=== PATIENT | male | born 1975 | race Two or more races ===

== ENCOUNTER 2022-07-30 15:26 | Emergency (ER) | payer OTHER ==
[~2022-07-30] VITALS: Ht 177.8 cm; Wt 99.8 kg
[~2022-07-30 15:26] MED LIST: MUPI1OIN NS; RIFA600V4 PO; SULF1TAB48 PO
--- NOTE | 2022-07-30 15:30 | NUR ---
RECEIVED PT 47 YRS MALE CAME BY [facility] FOR CHEST PAIN CAME BY COUSTED RESPIRATION
--- NOTE | 2022-07-30 15:35 | NUR ---
2 OFFICER 1AT BED SIDE SONU SOTO #[phone] FROM [facility]
--- NOTE | 2022-07-30 15:45 | NUR ---
BLOOD DROW BY LAB TACH
[2022-07-30] MEDS ORDERED: ASPIRIN 325 MG TABLET ONE (16:23)
[2022-07-30] MEDS ORDERED: ASPIRIN 325 MG TABLET PO ONE (16:30)
[2022-07-30 16:39] LABS: BASOPHILS % (AUTO) 0.3 % (0.0-2.0); EOSINOPHILS % (AUTO) 1.3 % (0.0-6.0); HEMATOCRIT 46 % (39-51); HEMOGLOBIN 14.9 g/dL (13.5-17.5); LYMPHOCYTES # (AUTO) 2.2 K/uL (0.8-4.8); LYMPHOCYTES % (AUTO) 19.4 % (20.0-44.0); MEAN CORPUSCULAR HGB CONC 32 g/dl (31.0-36.0); MEAN CORPUSCULAR VOLUME 83 fL (80-96); MONOCYTES # (AUTO) 0.6 K/uL (0.1-1.30); MONOCYTES % (AUTO) 5.2 % (2.0-12.0); NEUTROPHILS # (AUTO) 8.3 K/uL (1.8-8.9); NEUTROPHILS % (AUTO) 73.8 % (43.0-81.0); PLATELET COUNT (AUTO) 303 K/uL (150-450); RED BLOOD CELL COUNT(AUTO) 5.52 MIL/uL (4.5-6.0); WHITE BLOOD COUNT (AUTO) 11.3 K/uL (4.3-11.0)
[2022-07-30 17:22] LABS: CALCIUM, SERUM 9.2 mg/dL (8.5-10.1); CARBON DIOXIDE 28 mmol/L (21-32); CHLORIDE 105 mmol/L (98-107); GLUCOSE 103 mg/dL (74-106); POTASSIUM 4.2 mmol/L (3.5-5.1); SODIUM SERUM 141 mmol/L (136-145); UREA NITROGEN, BLOOD 17 mg/dL (7-18)
--- NOTE | 2022-07-30 17:27 | NUR ---
RESTING AND ASLEEPY WATING FOR LAB RESULT
--- NOTE | 2022-07-30 18:59 | NUR ---
DINESS CHEST PAIN OR SOB
--- NOTE | 2022-07-30 19:05 | NUR ---
OK TO BOOK discharged to stable condition. Written and verbal after care instructions given. Patient verbalizes understanding of instruction. OK TO BOOK
[2022-07-30 19:21] VITALS: BP 141/89
== END 2022-07-30 19:23 ==
LOC: ER 15:30
DX: R07.89 Other chest pain (principal); F17.210 Nicotine dependence, cigarettes, uncomplicated; Z79.899 Other long term (current) drug therapy
CPT/HCPCS: 36415; 71045-TC; 80048-TC; 84484-TC; 85025-TC